=== PATIENT | female | born 1975 | race Caucasian/White ===

== ENCOUNTER 2020-02-18 16:20 | Emergency (ER) | payer OTHER ==
[~2020-02-18] VITALS: Ht 162.6 cm; Wt 133.8 kg
[2020-02-18 16:55] LABS: ABSOLUTE LYMPHOCYTES 0.6 thou/uL (0.8-5.3); ABSOLUTE MONOCYTES 0.2 thou/uL (0.0-1.2); ABSOLUTE NEUTROPHILS 3.4 thou/uL (1.6-8.1); BASOPHILS 0.3 %; EOSINOPHILS 0.1 %; HEMATOCRIT 45.2 % (37.0-47.0); HEMOGLOBIN 15.3 gm/dL (12.0-15.0); MCH 29.8 pg (26.0-34.0); MCHC 33.8 g/dL (28.0-37.0); MCV 88.3 fL (80.0-100.0); MONOCYTES 5.7 %; MPV 8.8 fl. (7.2-11.1); NUCLEATED RBCS 0 /100WBC; PLATELET COUNT* 182 thou/uL (150-400); POLYS 79.9 %; RBC 5.11 mil/uL (4.20-5.00); RDW-CV 13.7 % (10.5-14.5); WBC 4.3 thou/uL (4.0-11.0)
[2020-02-18 17:11] LABS: CALCIUM 7.9 mg/dL (8.5-10.1); CREATININE 0.8 mg/dL (0.6-1.3); POTASSIUM 3.8 mmol/L (3.5-5.1)
[2020-02-18 17:16] LABS: ALBUMIN 2.9 g/dL (3.4-5.0); TOTAL BILIRUBIN 0.4 mg/dL (<0.1-1.0); TOTAL PROTEIN 6.9 g/dL (6.4-8.2)
[2020-02-18] MEDS ORDERED: ZPAK PO (17:54)
[2020-02-18] MEDS ORDERED: VENTOLIN HFA 1818 GM INH (17:54)
[2020-02-18] MEDS ORDERED: ZOFRAN ODT4 MG PO (17:54)
[2020-02-18 18:55] VITALS: BP 142/69
--- NOTE | 2020-02-20 09:53 | EKG ---
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1975 Requested By: Tirso Elmore Order Number: [id number] MD: Sabino Sanchez Measurements Intervals [place] Rate: 87 P: 36 KS: 149 QRS: -22 QRSD: 94 T: 24 QT: 349 QTc: 420 Interpretive Statements Sinus rhythm Possible left ventricular hypertrophy No previous ECG available for comparison Electronically Signed On 02-20-2020 9:53:32 CDT by Sabino Sanchez [email or web address] <ELECTRONICALLY SIGNED> By: Sabino Sanchez MD, [facility] 02/20/20 0953 30 30 Sabino Sanchez MD, [facility] /EPI
== END 2020-02-18 18:56 | disposition home or self-care (01) ==
LOC: M.ERS 16:20
PROVIDERS: Family Medicine
DX: J98.8 Other specified respiratory disorders (principal); Z20.828 Contact with and (suspected) exposure to other viral communicable diseases; Z88.1 Allergy status to other antibiotic agents

== ENCOUNTER 2020-02-24 15:19 | Inpatient (IN) | payer OTHER ==
[~2020-02-24] VITALS: Ht 162.6 cm; Wt 135.2 kg
[~2020-02-24 15:19] MED LIST: VENTOLIN HFA 1818 GM INH; ZOFRAN ODT4 MG PO; ZPAK PO
[2020-02-24 15:28] VITALS: BP 139/82
[2020-02-24 15:51] LABS: ABSOLUTE BASOPHILS 0.1 thou/uL (0.0-0.2); ABSOLUTE EOSINOPHILS 0.1 thou/uL (0.0-0.7); ABSOLUTE LYMPHOCYTES 2.2 thou/uL (0.8-5.3); ABSOLUTE MONOCYTES 0.8 thou/uL (0.0-1.2); ABSOLUTE NEUTROPHILS 5.5 thou/uL (1.6-8.1); BASOPHILS 1.1 %; HEMOGLOBIN 14.1 gm/dL (12.0-15.0); LYMPHOCYTES 25.6 %; MCH 29.5 pg (26.0-34.0); MCHC 34.3 g/dL (28.0-37.0); MCV 85.9 fL (80.0-100.0); MONOCYTES 8.9 %; MPV 7.8 fl. (7.2-11.1); NUCLEATED RBCS 0 /100WBC; PLATELET COUNT* 507 thou/uL (150-400); POLYS 63.4 %; RBC 4.78 mil/uL (4.20-5.00); RDW-CV 13.5 % (10.5-14.5); WBC 8.7 thou/uL (4.0-11.0)
[2020-02-24 15:57] LABS: BE 3.7 mmol/L (-2 to +3); PCO2 25.3 mmHg (35.0-45.0); pH 7.595 (7.340-7.450)
[2020-02-24 16:01] LABS: CALCIUM 8.7 mg/dL (8.5-10.1); POTASSIUM 4.1 mmol/L (3.5-5.1)
[2020-02-24 16:05] LABS: MAGNESIUM 1.8 mg/dL (1.8-2.4); TOTAL BILIRUBIN 0.5 mg/dL (<0.1-1.0); TOTAL PROTEIN 7.8 g/dL (6.4-8.2)
[2020-02-24 18:00] VITALS: BP 135/74
[2020-02-24 20:00] VITALS: BP 113/57
[2020-02-24 20:18] LABS: URINE BILIRUBIN NEGATIVE (Negative); URINE BLOOD NEGATIVE (Negative); URINE CLARITY CLEAR; URINE COLOR YELLOW; URINE GLUCOSE-RANDOM NEGATIVE (Negative); URINE KETONES NEGATIVE (Negative); URINE LEUKOCYTES-REFLEX NEGATIVE (Negative); URINE NITRITE-REFLEX NEGATIVE (Negative); URINE PROTEIN NEGATIVE (Negative); URINE UROBILINOGEN 0.2 E.U./dl (0.2-1.0)
[2020-02-25] VITALS (7 sets, daily range): BP systolic 114–149; BP diastolic 57–82
[2020-02-25 04:32] LABS: ABSOLUTE BASOPHILS 0.1 thou/uL (0.0-0.2); ABSOLUTE LYMPHOCYTES 0.9 thou/uL (0.8-5.3); ABSOLUTE MONOCYTES 0.1 thou/uL (0.0-1.2); ABSOLUTE NEUTROPHILS 3.7 thou/uL (1.6-8.1); BASOPHILS 1.1 %; EOSINOPHILS 0.1 %; HEMATOCRIT 42.3 % (37.0-47.0); HEMOGLOBIN 14.4 gm/dL (12.0-15.0); LYMPHOCYTES 19.5 %; MCH 29.8 pg (26.0-34.0); MCV 87.6 fL (80.0-100.0); MONOCYTES 1.9 %; MPV 7.8 fl. (7.2-11.1); NUCLEATED RBCS 0 /100WBC; POLYS 77.4 %; RBC 4.82 mil/uL (4.20-5.00); RDW-CV 13.3 % (10.5-14.5); WBC 4.8 thou/uL (4.0-11.0)
[2020-02-25 04:42] LABS: PLATELET COUNT* 426 thou/uL (150-400)
[2020-02-25 04:51] LABS: CALCIUM 8.4 mg/dL (8.5-10.1); CREATININE 0.8 mg/dL (0.6-1.3); POTASSIUM 4.5 mmol/L (3.5-5.1)
[2020-02-26 03:56] VITALS: BP 131/65
[2020-02-26 04:51] LABS: ABSOLUTE LYMPHOCYTES 1.2 thou/uL (0.8-5.3); ABSOLUTE MONOCYTES 0.3 thou/uL (0.0-1.2); ABSOLUTE NEUTROPHILS 8.3 thou/uL (1.6-8.1); BASOPHILS 0.3 %; HEMATOCRIT 38.9 % (37.0-47.0); HEMOGLOBIN 13.5 gm/dL (12.0-15.0); LYMPHOCYTES 11.9 %; MCH 30.1 pg (26.0-34.0); MCHC 34.6 g/dL (28.0-37.0); MPV 7.8 fl. (7.2-11.1); NUCLEATED RBCS 0 /100WBC; PLATELET COUNT* 477 thou/uL (150-400); POLYS 84.8 %; RBC 4.48 mil/uL (4.20-5.00); RDW-CV 13.7 % (10.5-14.5); WBC 9.8 thou/uL (4.0-11.0)
[2020-02-26 05:12] LABS: CALCIUM 8.1 mg/dL (8.5-10.1); CREATININE 0.7 mg/dL (0.6-1.3); POTASSIUM 4.1 mmol/L (3.5-5.1)
[2020-02-26 08:00] VITALS: BP 122/65
[2020-02-26] MEDS ORDERED: TESSALON PERLE100 MG PO (09:09)
[2020-02-26] MEDS ORDERED: VENTOLIN HFA 1818 GM INH (09:09)
[2020-02-26] MEDS ORDERED: LEVOFLOXACIN750 MG PO (09:09)
[2020-02-26] MEDS ORDERED: DEXAMETHASONE 22 M1 PO (09:09)
[2020-02-26] MEDS ORDERED: MUCINEX600 MG PO (09:09)
[2020-02-26] MEDS ORDERED: PROTONIX40 M2 PO (09:10)
[2020-02-26 09:42] VITALS: BP 122/65
== END 2020-02-26 10:45 | disposition home or self-care (01) | DRG 177 ==
LOC: M.ERS 15:19 → M.TBA-ER 16:45 → M.2W 18:13
PROVIDERS: Personal Emergency Response Attendant; ADMIT Internal Medicine; ATTEND Internal Medicine
DX: U07.1 COVID-19 (principal); J12.89 Other viral pneumonia; Z68.43 Body mass index [BMI] 50.0-59.9, adult; R65.10 Systemic inflammatory response syndrome (SIRS) of non-infectious origin without acute organ dysfunction; E66.01 Morbid (severe) obesity due to excess calories; F41.9 Anxiety disorder, unspecified; Z88.1 Allergy status to other antibiotic agents; Z79.899 Other long term (current) drug therapy

== ENCOUNTER → 2020-03-14 | Outpatient (CLI) | payer OTHER ==
[~2020-03-14] MED LIST changes: +DEXAMETHASONE 22 M1 PO; +LEVOFLOXACIN750 MG PO; +MUCINEX600 MG PO; +PROTONIX40 M2 PO; +TESSALON PERLE100 MG PO
--- NOTE | 2020-03-14 13:50 | 2DMMODE ---
[place] [address] 2 D/M-MODE ECHOCARDIOGRAM Name: CRISSY MIRANDA Room: [facility]#: [id number] Admission: 03/14/20 Attend Phys: Frida Casey Discharge: Date of : 71 Date of Service: 03/14/20 1349 Report #: [id number] THIS REPORT FOR: cc: Alex Cardenas,Alex Paredes,Tyrese Mcgraw MD [facility] ~ APPROVED REPORT Study performed: 03/14/2020 08:06:46 EXAM: Comprehensive 2D, Doppler, and color-flow Echocardiogram Patient Location: Out-Patient BSA: 2.27 HR: 82 bpm BP: 120/70 mmHg Other Information Study Quality: Adequate Indications Chest Pain 2D Dimensions IVSd: 9.32 (7-11mm) LVOT Diam: 20.68 (18-24mm) LVDd: 45.73 mm PWd: 9.05 (7-11mm) Ascending Ao: 23.82 (22-36mm) LVDs: 27.09 (25-40mm) Aortic Root: 28.42 mm Volumes Left Atrial Volume (Systole) [place] ESV Index: 14.20 mL/m2 Aortic Valve AoV Peak Wolfgang.: 1.80 m/s AO Peak Gr.: 13.00 mmHg LVOT Max P.90 mmHg AO Mean Gr.: 7.07 mmHg LVOT Mean P.14 mmHg LVOT Max V: 1.11 m/s AO V2 VTI: 39.99 cm LVOT Mean V: 0.66 m/s RADHA (VTI): 2.14 cm2 LVOT V1 VTI: 25.50 cm Mitral Valve E/A Ratio: 1.19 [place] [address] 2 D/M-MODE ECHOCARDIOGRAM Name: CRISSY MIRANDA Room: [facility]#: [id number] Admission: 03/14/20 Attend Phys: Frida Casey Discharge: Date of : 71 Date of Service: 03/14/20 1349 Report #: [id number] MV Decel. Time: 209.27 ms MV E Max Wolfgang.: 0.80 m/s MV PHT: 60.69 ms MVA (PHT): 3.63 cm2 TDI E/Lateral E': 5.00 E/Medial E': 7.27 Medial E' Wolfgang.: 0.11 m/s Lateral E' Wolfgang.: 0.16 m/s Pulmonary Valve PV Peak Wolfgang.: 1.00 m/s PV Peak Gr.: 4.02 mmHg Left Ventricle The left ventricle is normal size. There is normal LV segmental wall motion. There is normal left ventricular wall thickness. Left ventricular systolic function is normal. The left ventricular ejection fraction is within the normal range. The left ventricular diastolic function is normal. Right Ventricle The right ventricle is normal size. The right ventricular systolic function is normal. Atria The left atrium size is normal. The right atrium size is normal. Aortic Valve The aortic valve is normal in structure. No aortic regurgitation is present. There is no aortic valvular stenosis. Mitral Valve The mitral valve is normal in structure. There is no mitral valve regurgitation noted. No evidence of mitral valve stenosis. Tricuspid Valve The tricuspid valve is normal in structure. There is trace tricuspid valve regurgitation noted. Pulmonic Valve Pulmonic valve is not well visualized. There is no pulmonic valvular regurgitation. Great Vessels The aortic root is normal in size. [place] [address] 2 D/M-MODE ECHOCARDIOGRAM Name: CRISSY MIRANDA Room: [facility]#: [id number] Admission: 03/14/20 Attend Phys: Frida Casey Discharge: Date of : 71 Date of Service: 03/14/20 1349 Report #: [id number] collapses >50% with inspiration. Pericardium There is no pericardial effusion. <Conclusion> Left ventricular systolic function is normal. The left ventricular ejection fraction is within the normal range. <ELECTRONICALLY SIGNED> By: Tyrese Moseley MD, FACC 03/14/20 1349 1349 1349 Tyrese Moseley MD, FACC /INF
== END ==
LOC: M.CRD 08:00
PROVIDERS: ATTEND Nurse Practitioner
DX: U07.1 COVID-19 (principal); R07.89 Other chest pain; R10.30 Lower abdominal pain, unspecified; Z87.01 Personal history of pneumonia (recurrent)

== ENCOUNTER → 2020-03-16 | Outpatient (CLI) | payer OTHER | LOC: M.ULTRA 09:47 | PROVIDERS: ATTEND Nurse Practitioner | DX: R60.0 Localized edema (principal); R63.5 Abnormal weight gain ==